=== PATIENT | female | born 1990 | race Caucasian/White ===

== ENCOUNTER 2020-07-01 16:42 | Outpatient (CLI) | payer OTHER | END 2020-07-01 16:43 | disposition home or self-care (01) | LOC: COV 16:42 | PROVIDERS: ATTEND Family Medicine | DX: U07.1 COVID-19 (principal) ==

== ENCOUNTER 2021-01-26 15:12 | Emergency (ER) | payer OTHER ==
[2021-01-26 15:18] VITALS: BP 122/59
[2021-01-26] MEDS ORDERED: cephALEXin 250 MG CAPSULE PO STA (15:32)
[2021-01-26] MEDS ORDERED: SULFAMETH/TRIMETH DS 800/160 MG TABLET PO STA (15:32)
--- NOTE | 2021-01-26 15:35 | ED Physician Documentation ---
History of Present Illness - Stated complaint Stated Complaint: BILAT TOE PX - Chief complaint Chief Complaint: Ext Problem - History obtained from History obtained from: Patient - History of Present Illness Timing: How many days ago (3) Pain level max: 4 Pain level now: 4 - Additonal information Additional information: Patient is a 30-year-old female, history of type 1 diabetes. She states that she wore too tight of shoes when she was dancing a few nights ago, developed bruising under the toenails which have then turned white and there is drainage from the toenails. Concerned about potential infection. Nothing makes it better or worse. No fevers. No chills. Denies any possibility of . Review of Systems Constitutional: denies: Fever, Chills GI: denies: Vomiting : denies: Dysuria Skin: denies: Rash Musculoskeletal: denies: Neck pain, Back pain Neurologic: denies: Headache PD PAST MEDICAL HISTORY - Past Medical History Past Medical History: Yes Endocrine/Autoimmune: Type 1 diabetes - Past Surgical History Past Surgical History: No - Present Medications Home Medications: Ambulatory Orders Medication Instructions Recorded Confirmed Sulfamethox/Trimeth 800/160 1 each PO BID #14 tablet 01/26/21 [Bactrim Ds 800/160] cephALEXin [Keflex] 500 mg PO Q6H #28 cap 01/26/21 - Allergies Allergies/Adverse Reactions: Allergies Allergy/AdvReac Type Severity Reaction Status Date / Time No Known Drug Allergies Allergy Verified 01/26/21 15:18 PD ED PE NORMAL - Vitals Vital signs reviewed: Yes - General General: Alert and oriented X 3, No acute distress - HEENT HEENT: Moist mucous membranes - Derm Derm: Warm and dry - Extremities Extremities: Other (B great toe - Underneath the toenails there is elevation of the toenails and white fluid present. Neurovascular intact.) - Neuro Neuro: Alert and oriented X 3 Results - Vitals Vitals: Vital Signs - 24 hr 01/26/21 15:14 Temperature 36.8 C Heart Rate 73 Respiratory 16 Rate Blood Pressure 122/59 L O2 Saturation 97 Oxygen O2 Source Room air Procedures - General procedure General procedure: Verbal consent obtained. The bilateral great toes were anesthetized with 2% lidocaine after cleaning with alcohol. Excellent anesthesia achieved. Electrocautery was used to trephinate the nail and purulent fluid was removed from underneath the toenails. Patient tolerated well. No complications. PD MEDICAL DECISION MAKING - ED course Complexity details: considered differential, d/w patient ED course: 30-year-old female, type I diabetic appears to have infected subungual hematomas. Trephination of the nail performed, pressure released as well as purulent fluid. Will place on oral antibiotics as she is a diabetic. We will have her follow-up with podiatry for further care. Patient counseled regarding signs and symptoms for which I believe and urgent re-evaluation would be necessary. Patient with good understanding of and agreement to plan and is comfortable going home at this time This document was made in part using voice recognition software. While efforts are made to proofread this document, sound alike and grammatical errors may occur. Departure - Departure Disposition: 01 Home, Self Care Clinical Impression: Subungual hematoma, Subungual abscess Condition: Good Instructions: ED Hematoma Subungual Follow-Up: Josh Khan, DPM [Physician No Access] - Within 1 week Prescriptions: Sulfamethox/Trimeth 800/160 [Bactrim Ds 800/160] 1 each PO BID #14 tablet cephALEXin [Keflex] 500 mg PO Q6H #28 cap Comments: Take all antibiotics until gone. Please follow-up with podiatry for further care. Continue warm water soaks 2-3 times daily. Return if you worsen. Your prescriptions were sent to [facility] in [place]. Discharge Date/Time: 01/26/21 16:35
[2021-01-26] MEDS ORDERED: LIDOCAINE-MPF 2% 5 ML VIAL SUBQ STA (15:47)
== END 2021-01-26 16:35 | disposition home or self-care (01) ==
LOC: ED 15:12
DX: S90.212A Contusion of left great toe with damage to nail, initial encounter (principal); S90.211A Contusion of right great toe with damage to nail, initial encounter; W49.09XA Other specified item causing external constriction, initial encounter; Y93.41 Activity, dancing; L02.612 Cutaneous abscess of left foot; L02.611 Cutaneous abscess of right foot; E10.9 Type 1 diabetes mellitus without complications
CPT/HCPCS: 11740; 99283; A9270

== ENCOUNTER 2021-01-29 14:53 | Emergency (ER) | payer OTHER ==
[2021-01-29 15:00] VITALS: BP 130/70
--- NOTE | 2021-01-29 15:54 | ED Physician Documentation ---
History of Present Illness - Stated complaint Stated Complaint: BILAT BIG TOE INFECTIONS - Chief complaint Chief Complaint: Ext Problem - Additonal information Additional information: 30-year-old female presents emergency department for recheck of bilateral great toe infections. Seen here 3 days ago for similar. She developed generalized toe redness swelling and pain after wearing shoes that were too tight. Seen by my colleague Dr. Doss. She did have both of her great nail was trephinated for drainage of serous and bloody fluid. Given that she was a type I diabetic she was started on both Bactrim and Keflex. She has been day wearing daily Epson salt soaks. She reports the pain is markedly better. Because she does not have primary care follow-up she returns to the ER for a recheck of her symptoms. Since being seen she reports improved pain. There have been no fevers. The toes themselves are less erythematous. Review of Systems Constitutional: denies: Fever, Chills Eyes: reports: Reviewed and negative Ears: reports: Reviewed and negative Nose: reports: Reviewed and negative Cardiac: reports: Reviewed and negative Respiratory: reports: Reviewed and negative GI: reports: Reviewed and negative : reports: Reviewed and negative Skin: reports: Lesions PD PAST MEDICAL HISTORY - Past Medical History Endocrine/Autoimmune: Type 1 diabetes - Past Surgical History Past Surgical History: No - Present Medications Home Medications: Ambulatory Orders Medication Instructions Recorded Confirmed Sulfamethox/Trimeth 800/160 1 each PO BID #14 tablet 01/26/21 [Bactrim Ds 800/160] cephALEXin [Keflex] 500 mg PO Q6H #28 cap 01/26/21 - Allergies Allergies/Adverse Reactions: Allergies Allergy/AdvReac Type Severity Reaction Status Date / Time No Known Drug Allergies Allergy Verified 01/29/21 14:57 - Social History Does the pt smoke?: No Smoking Status: Never smoker PD ED PE EXPANDED - General General: Alert, No acute distress - Extremities Extremities: Right toe(s) (Right great toe with no erythema or swelling. Minimally tender to touch medially. Trephinated nail intact and well adherent to the nail bed. No further drainage noted.), Left toe(s) (Left great toe without swelling or erythema. No tenderness noted. Trephination site clean dry and intact. The nail is well adherent to the nail bed.) Results - Vitals Vitals: Vital Signs - 24 hr 01/29/21 14:57 Temperature 36.5 C Heart Rate 70 Respiratory 16 Rate Blood Pressure 130/70 O2 Saturation 99 Oxygen O2 Source Room air PD MEDICAL DECISION MAKING - ED course Complexity details: reviewed results, re-evaluated patient ED course: 22-year-old female returns in ER for recheck of her bilateral great toe infections. She is a type I diabetic. Both of the nails were trephinated to allow fluid drainage. She is taking both Keflex and Bactrim. Since being seen 3 days ago she reports improved swelling reduce pain and no fevers. Both trephination sites are intact without any further drainage and the nails both seem adherent to the nail bed. Patient is encouraged to complete the full course of antibiotics as well as the daily salt soaks. I have given her referrals to the [facility] to establish with a PCP as she [place]. Departure - Departure Disposition: 01 Home, Self Care Clinical Impression: Visit for wound check Condition: Stable Record reviewed to determine appropriate education?: Yes Comments: Karla both of your nail and toes look as though they are healing well. I encourage you to continue with the soaks as well as completing the full course of antibiotics. It will take approximately 6 months for the full nail growth to occur and you will notice that the new nail growing and appears different than the nail currently in place. The [facility] in [place] and [place] are accepting new patients. Is very important that you establish with a primary care doctor for long-term management of your diabetes
== END 2021-01-29 16:10 | disposition home or self-care (01) ==
LOC: ED 14:53
DX: Z48.00 Encounter for change or removal of nonsurgical wound dressing (principal); E10.9 Type 1 diabetes mellitus without complications
CPT/HCPCS: 99281